=== PATIENT | female | born 1940 | race Caucasian/White ===

== ENCOUNTER → 2017-06-27 | Outpatient (CLI) | payer MEDICARE, OTHER ==
[~2017-06-27] MED LIST: ALBU90OI INH; AMILORIDE HCL5 MG PO; ASPI325 PO; ASPI81CH PO; BUME2 PO; CEPH500; CEPH500 PO; CHEMO; CIPR500 PO; ELIQUIS5 MG PO; ERGO400 PO; FLUSAL2505 IH; GABA100 PO; GLIP10 PO; Hydrocodone-Ap1 EA23 PO; IBUP400; MAGCHL64ER PO; MAGNESIUM; MECL25 PO; METF500 PO; METO25ER PO; NAC600 MG PO; NASACORT10.8 ML; Norco 5-325 Ta1 EACH PO; OMEP20ER PO; OXYACE5T PO; PARI1 PO; POTA10T PO; Phospha 250 Ne250 MG PO; SAXA2.5T PO; TIOT18 IH; VITAMIN D-32000 UNI1 PO; VITAMIN D35000 UNI1 PO; Valium2 MG PO; WARF4 PO; WARFARIN; [UNRECOGNIZED DRUG - OTHER]
[2017-06-27 13:34] LABS: Percent Saturation 30.3 % (15.0-50.0)
== END ==
LOC: LAB SHORT 12:30
PROVIDERS: Internal Medicine Hematology & Oncology
DX: D50.9 Iron deficiency anemia, unspecified (principal)
CPT/HCPCS: 82728; 83540; 83550

== ENCOUNTER 2017-07-28 00:26 | Day surgery (SDC) | payer MEDICARE, OTHER ==
[~2017-07-28 00:26] MED LIST changes: -Phospha 250 Ne250 MG PO; -WARF4 PO
[2017-07-28] MEDS ORDERED: Phospha 250 Ne250 MG PO (08:09)
[2017-07-28] MEDS ORDERED: WARF4 PO (08:10)
== END 2017-07-28 13:18 | disposition home or self-care (01) ==
LOC: ATC 00:26
DX: N17.9 Acute kidney failure, unspecified (principal); I12.9 Hypertensive chronic kidney disease with stage 1 through stage 4 chronic kidney disease, or unspecified chronic kidney disease; N18.9 Chronic kidney disease, unspecified; D63.1 Anemia in chronic kidney disease; R60.9 Edema, unspecified; D50.9 Iron deficiency anemia, unspecified; E87.1 Hypo-osmolality and hyponatremia; E87.6 Hypokalemia; E83.30 Disorder of phosphorus metabolism, unspecified; E83.42 Hypomagnesemia; E78.00 Pure hypercholesterolemia, unspecified
CPT/HCPCS: 96365; 96366; J7040

== ENCOUNTER 2017-09-04 08:12 | Day surgery (SDC) | payer MEDICARE, OTHER ==
[~2017-09-04 08:12] MED LIST changes: +Phospha 250 Ne250 MG PO; +WARF4 PO
== END 2017-09-04 17:51 | disposition home or self-care (01) ==
LOC: ATC 08:12
DX: E83.30 Disorder of phosphorus metabolism, unspecified (principal); I12.9 Hypertensive chronic kidney disease with stage 1 through stage 4 chronic kidney disease, or unspecified chronic kidney disease; N18.2 Chronic kidney disease, stage 2 (mild); D63.1 Anemia in chronic kidney disease; E87.70 Fluid overload, unspecified; D50.9 Iron deficiency anemia, unspecified; E87.1 Hypo-osmolality and hyponatremia; M81.0 Age-related osteoporosis without current pathological fracture
CPT/HCPCS: 96365; 96366; J7060

== ENCOUNTER → 2018-11-04 | Outpatient (CLI) | payer MEDICARE, OTHER ==
[2018-11-04 11:45] LABS: Protein, Urine Quantitative 6.8 mg/dL (0.0-11.9)
[2018-11-04 11:48] LABS: Microalbumin, Urine Quant. 7.98 mg/L (0.000-20.000)
== END | disposition home or self-care (01) ==
LOC: LAB 07:45 → LAB SHORT 07:45 → LAB FUT 10-28 14:10
PROVIDERS: Internal Medicine Nephrology
DX: N18.2 Chronic kidney disease, stage 2 (mild) (principal); D63.1 Anemia in chronic kidney disease; R80.9 Proteinuria, unspecified
CPT/HCPCS: 81050; 82043; 82570; 84156

== ENCOUNTER 2019-05-29 09:35 | Inpatient (IN) | payer MEDICARE, OTHER ==
[~2019-05-29] VITALS: Ht 154.9 cm; Wt 122.9 kg
[2019-05-29 10:11] LABS: BASOPHILS ABSOLUTE AUTO 0.04 K/mm3 (0.00-0.23); BASOPHILS PERCENT AUTO 0 % (0-2); EOSINOPHILS ABSOLUTE AUTO 0.03 K/mm3 (0.00-0.68); EOSINOPHILS PERCENT AUTO 0 % (0-6); Hematocrit 41.4 % (33.0-51.0); Hemoglobin 12.7 g/dL (11.5-16.0); IMMATURE GRAN ABSOLUTE AUTO 0.07 K/mm3 (0.00-0.10); IMMATURE GRAN PERCENT AUTO 0 % (0-1); LYMPHOCYTES ABSOLUTE AUTO 1.34 K/mm3 (0.84-5.20); LYMPHOCYTES PERCENT AUTO 8 % (21-46); MONOCYTES ABSOLUTE AUTO 0.98 K/mm3 (0.16-1.47); MONOCYTES PERCENT AUTO 6 % (4-13); Mean Corpuscular HGB 27.6 pg (26.0-34.0); Mean Corpuscular HGB Conc 30.7 g/dL (31.5-36.5); Mean Corpuscular Volume 90 fL (80-100); Mean Platelet Volume 9.3 fL (9.1-12.4); NEUTROPHILS ABSOLUTE AUTO 14.37 K/mm3 (1.96-9.15); NEUTROPHILS PERCENT AUTO 85 % (41-73); Platelet Count 290 K/mm3 (150-400); RDW Coefficient Variation 14.8 % (11.7-14.2); RDW Standard Deviation 48.7 fL (35.1-46.3); White Blood Cell Count 16.83 K/mm3 (4.00-11.30)
[2019-05-29 10:18] LABS: Alanine Aminotransfer (ALT/SGP 23 U/L (12-78); Albumin, Blood 3.4 g/dL (3.4-5.0); Albumin/Globulin Ratio 0.8 (0.8-1.8); Alk Phos 92 U/L (50-136); Anion Gap 7 mmol/L (6-16); Aspartate Aminotrans (AST/SGOT 20 U/L (12-37); Bilirubin, Total 0.4 mg/dL (0.1-1.0); Blood Urea Nitrogen 24 mg/dL (8-24); CO2, Blood 26 mmol/L (21-32); Calcium, Blood 9.3 mg/dL (8.5-10.1); Chloride, Blood 105 mmol/L (98-108); Creatinine, Blood 0.92 mg/dL (0.40-1.00); Globulin, Blood 4.3 g/dL (2.2-4.0); Glomerular Filtration Rate >60 (60-); Glucose, Blood 244 mg/dL (70-99); Potassium, Blood 5.1 mmol/L (3.5-5.5); Sodium, Blood 138 mmol/L (136-145); Total Protein, Blood 7.7 g/dL (6.4-8.2)
[2019-05-29 11:27] LABS: International Normalized Ratio 2.93; Prothrombin Time Results 28.2 Sec (9.7-11.5)
--- NOTE | 2019-05-29 19:07 | NUR ---
pt arrived to pcu 2 via gurney from ed. report was recieved, pt able to stand and pivot to bed, she was positioned in bed so she is comfortable, and sat her up so she can breath easier, her spouce is in attendence, she is a/ox3, pleasant and cooperative with care, follows commands well, denies pain except for a h/a, and feels that is from not eating all day, lungs are very tight and dim t/o, resp even and labored, at rate of 24, sats were 90% on room air, placed her on 2 liters and placed her on a continuous, sat monitor, she is 90% on r/a placed her on 2 liters 02 via n/c, she reports a productive cough of brown sputum, that is very thick and sticky, hrr, tele in place running 100% paced rhythm with underlying sinus, no edema noted, ppp+1, cap refill <3sec, vs stable, low grade temp, iv site is s.l. 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
--- NOTE | 2019-05-29 20:10 | NUR ---
CARE ASSUMPTION / CRITICAL LACTIC PT A&O X4. VSS. RR RAPID, EVEN & LABORED. SPO2 > 90% ON 2L NC. LUNG SOUNDS DIM T/O. MONITOR SHOWS 100% V-PACED, HR 90's. CRITICAL LACTIC OF 4.3 CALLED TO MD AMANDA W/ ORDER TO RECHECK LACTIC IN AM. NS GTT INFUSING PER PRE-EXISTING ORDERS. WILL CONTINUE TO MONITOR AND PROVIDE CARE.
[2019-05-30 03:19] LABS: BASOPHILS ABSOLUTE AUTO 0.02 K/mm3 (0.00-0.23); BASOPHILS PERCENT AUTO 0 % (0-2); EOSINOPHILS ABSOLUTE AUTO 0.16 K/mm3 (0.00-0.68); EOSINOPHILS PERCENT AUTO 2 % (0-6); Hematocrit 33.5 % (33.0-51.0); Hemoglobin 10.4 g/dL (11.5-16.0); IMMATURE GRAN ABSOLUTE AUTO 0.03 K/mm3 (0.00-0.10); IMMATURE GRAN PERCENT AUTO 0 % (0-1); LYMPHOCYTES ABSOLUTE AUTO 2.73 K/mm3 (0.84-5.20); LYMPHOCYTES PERCENT AUTO 25 % (21-46); MONOCYTES ABSOLUTE AUTO 0.73 K/mm3 (0.16-1.47); MONOCYTES PERCENT AUTO 7 % (4-13); Mean Corpuscular HGB 28.3 pg (26.0-34.0); Mean Corpuscular Volume 91 fL (80-100); NEUTROPHILS ABSOLUTE AUTO 7.12 K/mm3 (1.96-9.15); NEUTROPHILS PERCENT AUTO 66 % (41-73); Platelet Count 220 K/mm3 (150-400); RDW Coefficient Variation 14.9 % (11.7-14.2); RDW Standard Deviation 50.1 fL (35.1-46.3); Red Blood Cell Count 3.68 M/mm3 (3.80-5.20); White Blood Cell Count 10.79 K/mm3 (4.00-11.30)
[2019-05-30 03:33] LABS: International Normalized Ratio 2.93; Prothrombin Time Results 28.2 Sec (9.7-11.5)
[2019-05-30 03:38] LABS: Alanine Aminotransfer (ALT/SGP 20 U/L (12-78); Albumin, Blood 2.9 g/dL (3.4-5.0); Albumin/Globulin Ratio 0.8 (0.8-1.8); Alk Phos 67 U/L (50-136); Anion Gap 7 mmol/L (6-16); Aspartate Aminotrans (AST/SGOT 15 U/L (12-37); Bilirubin, Total 0.4 mg/dL (0.1-1.0); Blood Urea Nitrogen 17 mg/dL (8-24); Bun/Creatinine Ratio 21.2 (12.0-20.0); CO2, Blood 26 mmol/L (21-32); Calcium, Blood 8.2 mg/dL (8.5-10.1); Chloride, Blood 107 mmol/L (98-108); Globulin, Blood 3.5 g/dL (2.2-4.0); Glomerular Filtration Rate >60 (60-); Glucose, Blood 122 mg/dL (70-99); Potassium, Blood 3.8 mmol/L (3.5-5.5); Sodium, Blood 140 mmol/L (136-145); Total Protein, Blood 6.4 g/dL (6.4-8.2)
--- NOTE | 2019-05-30 07:19 | NUR ---
SHIFT SUMMARY PT A&O X4. VSS. RESPIRATIONS IMPROVED, UNLABORED AT REST. PT SOB W/ STAND AND PIVOT TO BSC. SPO2 > 90% ON 2L NC AT REST, REQUIRING 4-6L FOR ACTIVITY. LUNG SOUNDS DIM T/O. PT W/ OCCASSIONAL PRODUCTIVE COUGH W/ SCANT AMOUNT OF THICK BROWN SPUTUM. SPUTUM SAMPLE SENT WHEN PT ABLE TO PRODUCE SMALL SIZED SAMPLE THIS AM. MONITOR SHOWS V-PACING, HR 90's. LACTIC ACID NORMAL THIS AM AFTER TX PER ORDERS, SEE PREVIOUS NOTE. BLE W/ +2 EDEMA AT CARE ASSUMPTION, REDUCED THIS AM W/ ELEVATION. REPORT GIVEN TO DAY SHIFT RN.
--- NOTE | 2019-05-30 07:30 | NUR ---
RT IN ROOM AT THIS TIME.
--- NOTE | 2019-05-30 10:06 | NUR ---
NOTIFIED SLURRY TANK TENDER OF NEEDING NEW IV PLACED. SLURRY TANK TENDER VERBALIZED SHE WOULD TAKE A LOOK.
[2019-05-30 12:47] LABS: Adenovirus Not Detected (NOT DETECT); Bordetella pertussis Not Detected (NOT DETECT); Chlamydophila pneumoniae Not Detected (NOT DETECT); Coronavirus 229E Not Detected (NOT DETECT); Coronavirus HKU1 Not Detected (NOT DETECT); Coronavirus NL63 Not Detected (NOT DETECT); Coronavirus OC43 Not Detected (NOT DETECT); Human Metapneumovirus Not Detected (NOT DETECT); Human Rhinovirus/Enterovirus Not Detected (NOT DETECT); Influenza A Not Detected (NOT DETECT); Influenza A/2009-H1 Not Detected (NOT DETECT); Influenza A/H1 Not Detected (NOT DETECT); Influenza A/H3 Not Detected (NOT DETECT); Influenza B Not Detected (NOT DETECT); Mycoplasma pneumoniae Not Detected (NOT DETECT); Parainfluenza Virus 1 Not Detected (NOT DETECT); Parainfluenza Virus 2 Not Detected (NOT DETECT); Parainfluenza Virus 3 Not Detected (NOT DETECT); Parainfluenza Virus 4 Not Detected (NOT DETECT); Respiratory Syncytial Virus Not Detected (NOT DETECT)
--- NOTE | 2019-05-30 16:03 | NUR ---
SHIFT SUMMARY PT REPORT SHE IS FEELING BETTER THIS SHIFT. PT REMAINS ON 2.5L VIA NC WITH SATS BETWEEN 90-95%. PT DOES GET SOB WITH EXERTION AND DESATS TO 87%, BUT RECOVERS QUICKLY WITH DEEP BREATHING. PT CONT TO HAVE A PRODUCTIVE COUGH. SPUTUM CULTURE SENT. LUNGS ARE CLEAR BUT DIMINISHED IN THE BASES. RT ADMINISTERING NEBS PER ORDERS. CONT IV ABX. 1 SBA TO RESTROOM AND PT HAS BEEN UP IN CHAIR MOST OF SHIFT. ADE ADA DIET. PT USES CALL LIGHT APPROPRIATEY.
--- NOTE | 2019-05-30 19:48 | NUR ---
CARE ASSUMPTION PT A&O X4. VSS. PT SITTING UP IN CHAIR, REPORTS FEELING BETTER TODAY THAN SHE DID YESTERDAY. LUNG SOUNDS CLEAR, DIM IN BASES. SPO2 > 92% ON 2.5L NC. RR 20's, INCREASING W/ POSITION ADJUSTMENTS IN CHAIR. MONITOR SHOWS PACING, HR 90's. WILL CONTINUE TO MONITOR AND PROVIDE CARE.
[2019-05-31 04:48] LABS: International Normalized Ratio 2.97; Prothrombin Time Results 28.5 Sec (9.7-11.5)
--- NOTE | 2019-05-31 06:15 | NUR ---
SHIFT SUMMARY PT CONTINUES TO BE A&O X4. VSS. MONITOR SHOWS PACING, HR 90's-110. SPO2 > 90% ON 2.5L NC. PT SOB W/ ACTIVITY W/ 1 EPISODE OF DESAT TO 86% W/ AMBULATION TO BATHROOM REQUIRING TEMPORARY INCREASE TO 4L NC FOR RECOVERY. PT BREATHING EVEN AND UNLABORED WHILE AT REST OR SLEEPING. PT W/ 3 EPISODES THIS SHIFT OF PT WAKING UP REPORTING "I WOKE UP PANICKING THAT I CAN'T BREATHE" THOUGH SPO2 REMAINS > 90%. PT ENCOURAGED TO TAKE DEEP BREATHS. PT DIFFICULTY REPOSITIONING SELF IN BED, REQUIRING FREQUENT ASSISTANCE BY STAFF. PT DIFFICULTY GETTING COMFORTABLE W/ PT REPORT OF CLAUSTROPHOBIA AND IT BEING "IMPOSSIBLE TO MOVE IN BED." PT W/ MINIMAL SLEEP THIS SHIFT DESPITE MULT ATTEMPTS BY PT AND STAFF TO MAKE COMFORTABLE. PT IN BED W/ CALL LIGHT IN REACH. WILL CONTINUE TO MONITOR AND PROVIDE CARE UNTIL REPORT OFF TO DAY SHIFT RN.
--- NOTE | 2019-05-31 07:00 | NUR ---
ASSUMED CARE NOTE: ASSUMED CARE OF PT AT 0700, RECEIVED REPORT FROM BON JO. PT IS A&OX4, ON 2L OF NC WITH SPO2 ABOVE 90%. PT DENIES ANY CP/SOB AT THIS TIME. PT HAS BLE EDEMA. PT STATES SHE TAKES BUMEX DAILY AT HOME, WILL ASK FOR ORDER. WILL MONITOR PT T/O SHIFT. BED AT LOWEST LEVEL, CALL LIGHT WITHIN REACH.
--- NOTE | 2019-05-31 15:07 | NUR ---
REPORT GIVEN TO SANDRO TEIXEIRA. PT TO MEDICAL FLOOR RM 362 AT THIS TIME VIA WC WITH STAFF ASSIST ON 2L/NC. PT BELONGINGS AND MEDS SENT WITH PATIENT.
--- NOTE | 2019-05-31 15:17 | NUR ---
TRANSFER: PT ARRIVED TO ROOM 362 FROM PCU. PT UP TO CHAIR. ICE WATER GIVEN. ABX INFUSING IN IV. DENIES OTHER NEEDS. CALL LIGHT IN HAND. WILL CONT TO MONITOR AND TREAT.
--- NOTE | 2019-05-31 18:32 | NUR ---
PT HAS BEEN STABLE SINCE TRANSFER TO MEDICAL FLOOR. PT WEAK AND TIRED. UP TO CHAIR ALL AFTERNOON. POOR APPETITE. BLOOD SUGARS NOT REQUIRING COVERAGE. DRINKING FLUIDS WELL. VOIDING WELL. VERY SOB WITH ANY ACTIVITY. CONT 2L O2. PT DENIES PAIN. NO COUGH NOTED. PRUNE JUICE THIS AM TO ASSIST BM. IV SL. WBC COUNT TRENDING DOWN. BLE EDEMA. PT MIN ASSIST OOB WITH WALKER. USES CALL LIGHT APPRORIATELY NEEDED.
--- NOTE | 2019-06-01 04:31 | NUR ---
05/31/19 @2300 PT. VERY SOB WITH SWELLING IN THE HANDS AND FEET. RECEVIED NEB TX FROM RT, WHICH DID NOT HELP MUCH WITH HER SOB. SATS WERE AT 97% OTHER VSS. CALL PLACED TO HOSPITALIST. SPOKE WITH DR. RODRIGUEZ, PUT IN ORDER FOR 1X DOSE OF IV BUMEX. 05/31/19- 0100 PT. HAS VOIDED SEVERAL TIMES T/O THE NIGHT, STATES IS FEELING BETTER. DENIES ANY PAIN. WILL CONT TO MONITOR.
--- NOTE | 2019-06-01 04:40 | NUR ---
SHIFT SUMMARY- PT. RESTLESS T/O THE NIGHT. C/O SOB, RECEIVED SEVERAL BREATHING TX'S T/O THE SHIFT WELL 1X IV BUMEX, VOIDING WELL. PT. STATED FEELING BETTER BUT STILL UNABLE TO SLEEP OR GET COMFORTABLE. VSS, REPOSITIONED FOR COMFORT MULTIPLE TIMES DURING THE NIGHT. PT. WEAK AND TIRED, ON 2L OF 02. HAS BEEN OOB TO CHAIR MOST OF THE NIGHT. DENIES ANY PAIN. SPOUSE AT BEDSIDE. CALL LIGHT WITHIN REACH AND SIDE RAILS UP X2. WILL CONT TO MONITOR.
[2019-06-01 05:16] LABS: International Normalized Ratio 2.88; Prothrombin Time Results 27.7 Sec (9.7-11.5)
[2019-06-01 05:26] LABS: Anion Gap 9 mmol/L (6-16); Blood Urea Nitrogen 14 mg/dL (8-24); Bun/Creatinine Ratio 15.1 (12.0-20.0); CO2, Blood 25 mmol/L (21-32); Calcium, Blood 8.6 mg/dL (8.5-10.1); Chloride, Blood 103 mmol/L (98-108); Creatinine, Blood 0.93 mg/dL (0.40-1.00); Glomerular Filtration Rate >60 (60-); Glucose, Blood 164 mg/dL (70-99); Potassium, Blood 3.2 mmol/L (3.5-5.5); Sodium, Blood 137 mmol/L (136-145)
--- NOTE | 2019-06-01 18:56 | NUR ---
NO ACUTE CHANGES NOTED THIS SHIFT, WILL CONTINUE TO MONITOR AND REPORT TO ONCOMING RN
--- NOTE | 2019-06-02 04:25 | NUR ---
SHIFT SUMMARY- NO ACUTE CHANGES OVERNIGHT. PT.RESTED COMFORTABLY T/O NIGHT, NO APPARENT DISTRESS NOTED. PT. REMAINS ON 2L OF 02. DENIED ANY NEEDS T/O THE NIGHT. CALL LIGHT WITHIN REACH, SIDE RAILS UP X2, AND BED IN LOW POSITION. WILL CONT TO MONITOR.
[2019-06-02 04:47] LABS: BASOPHILS ABSOLUTE AUTO 0.03 K/mm3 (0.00-0.23); BASOPHILS PERCENT AUTO 0 % (0-2); EOSINOPHILS ABSOLUTE AUTO 0.36 K/mm3 (0.00-0.68); EOSINOPHILS PERCENT AUTO 5 % (0-6); Hematocrit 35.3 % (33.0-51.0); Hemoglobin 11.1 g/dL (11.5-16.0); IMMATURE GRAN ABSOLUTE AUTO 0.03 K/mm3 (0.00-0.10); IMMATURE GRAN PERCENT AUTO 0 % (0-1); LYMPHOCYTES ABSOLUTE AUTO 1.57 K/mm3 (0.84-5.20); LYMPHOCYTES PERCENT AUTO 20 % (21-46); MONOCYTES PERCENT AUTO 9 % (4-13); Mean Corpuscular HGB 27.4 pg (26.0-34.0); Mean Corpuscular HGB Conc 31.4 g/dL (31.5-36.5); Mean Platelet Volume 9.3 fL (9.1-12.4); NEUTROPHILS ABSOLUTE AUTO 5.18 K/mm3 (1.96-9.15); NEUTROPHILS PERCENT AUTO 66 % (41-73); Platelet Count 279 K/mm3 (150-400); RDW Coefficient Variation 14.6 % (11.7-14.2); RDW Standard Deviation 46.5 fL (35.1-46.3); Red Blood Cell Count 4.05 M/mm3 (3.80-5.20); White Blood Cell Count 7.87 K/mm3 (4.00-11.30)
[2019-06-02 04:50] LABS: Mean Corpuscular Volume 87 fL (80-100)
[2019-06-02 05:01] LABS: International Normalized Ratio 3.72
[2019-06-02 05:05] LABS: Alanine Aminotransfer (ALT/SGP 25 U/L (12-78); Albumin, Blood 2.9 g/dL (3.4-5.0); Albumin/Globulin Ratio 0.7 (0.8-1.8); Alk Phos 73 U/L (50-136); Anion Gap 8 mmol/L (6-16); Aspartate Aminotrans (AST/SGOT 15 U/L (12-37); Bilirubin, Total 0.4 mg/dL (0.1-1.0); Blood Urea Nitrogen 14 mg/dL (8-24); Bun/Creatinine Ratio 19.2 (12.0-20.0); CO2, Blood 26 mmol/L (21-32); Calcium, Blood 8.4 mg/dL (8.5-10.1); Chloride, Blood 105 mmol/L (98-108); Creatinine, Blood 0.73 mg/dL (0.40-1.00); Globulin, Blood 4.3 g/dL (2.2-4.0); Glomerular Filtration Rate >60 (60-); Glucose, Blood 136 mg/dL (70-99); Magnesium, Blood 1.5 mg/dL (1.6-2.4); Potassium, Blood 3.6 mmol/L (3.5-5.5); Sodium, Blood 139 mmol/L (136-145); Total Protein, Blood 7.2 g/dL (6.4-8.2)
--- NOTE | 2019-06-02 17:49 | NUR ---
PT AOX4 AND COOPERATIVE OF CARE. PT IS SOB, BUT STATES SHE FEELS SHE IS DOING BETTER TODAY. PT IS INDEPENDENT IN ROOM AND CALLS APPROPRIATELY. NO DISTRESS AT THIS TIME. WILL CONTINUE TO MONITOR.
--- NOTE | 2019-06-02 19:40 | NUR ---
PATIENT SITTING UP WATCHING TV, DENIES ANY NEEDS AT THIS TIME. EDEMA IN BLE +2 PITTING, ENCOURAGED TO ELEVATE BUT WANTS TO STAY SITTING UP IN CHAIR. ASSESSMENT COMPLETED. CALL LIGHT IN REACH. WILL CONTINUE TO MONITOR.
--- NOTE | 2019-06-03 03:41 | NUR ---
PATIENT HAVING TROUBLE SLEEPING STATES BED IS UNCOMFORTABLE, SHE HAS TROUBLE BREATHING WHEN SHE LAYS FLAT. ALSO SHE HAS SEVERE HEARTBURN THAT GETS WORSE WHEN LAYING DOWN. CALLED HOSPITALIST AND GOT ORDER FOR MAYLOX PRN.
[2019-06-03 04:51] LABS: BASOPHILS ABSOLUTE AUTO 0.03 K/mm3 (0.00-0.23); BASOPHILS PERCENT AUTO 0 % (0-2); EOSINOPHILS ABSOLUTE AUTO 0.32 K/mm3 (0.00-0.68); EOSINOPHILS PERCENT AUTO 4 % (0-6); Hematocrit 35.1 % (33.0-51.0); IMMATURE GRAN ABSOLUTE AUTO 0.03 K/mm3 (0.00-0.10); IMMATURE GRAN PERCENT AUTO 0 % (0-1); LYMPHOCYTES ABSOLUTE AUTO 1.16 K/mm3 (0.84-5.20); LYMPHOCYTES PERCENT AUTO 16 % (21-46); MONOCYTES ABSOLUTE AUTO 0.56 K/mm3 (0.16-1.47); MONOCYTES PERCENT AUTO 8 % (4-13); Mean Corpuscular HGB 27.4 pg (26.0-34.0); Mean Corpuscular HGB Conc 31.3 g/dL (31.5-36.5); Mean Corpuscular Volume 88 fL (80-100); Mean Platelet Volume 9.4 fL (9.1-12.4); NEUTROPHILS ABSOLUTE AUTO 5.13 K/mm3 (1.96-9.15); NEUTROPHILS PERCENT AUTO 71 % (41-73); Platelet Count 303 K/mm3 (150-400); RDW Coefficient Variation 14.6 % (11.7-14.2); RDW Standard Deviation 46.6 fL (35.1-46.3); Red Blood Cell Count 4.01 M/mm3 (3.80-5.20); White Blood Cell Count 7.23 K/mm3 (4.00-11.30)
[2019-06-03 05:05] LABS: International Normalized Ratio 3.66; Prothrombin Time Results 34.5 Sec (9.7-11.5)
[2019-06-03 05:14] LABS: Alanine Aminotransfer (ALT/SGP 25 U/L (12-78); Albumin/Globulin Ratio 0.7 (0.8-1.8); Alk Phos 70 U/L (50-136); Anion Gap 7 mmol/L (6-16); Aspartate Aminotrans (AST/SGOT 20 U/L (12-37); Bilirubin, Total 0.4 mg/dL (0.1-1.0); Blood Urea Nitrogen 14 mg/dL (8-24); Bun/Creatinine Ratio 18.8 (12.0-20.0); CO2, Blood 29 mmol/L (21-32); Calcium, Blood 8.5 mg/dL (8.5-10.1); Chloride, Blood 102 mmol/L (98-108); Creatinine, Blood 0.75 mg/dL (0.40-1.00); Globulin, Blood 4.1 g/dL (2.2-4.0); Glomerular Filtration Rate >60 (60-); Glucose, Blood 166 mg/dL (70-99); Potassium, Blood 3.3 mmol/L (3.5-5.5); Sodium, Blood 138 mmol/L (136-145); Total Protein, Blood 7.1 g/dL (6.4-8.2)
[2019-06-03 05:17] LABS: Percent Saturation 13.9 % (15.0-50.0)
--- NOTE | 2019-06-03 05:17 | NUR ---
SHIFT SUMMARY: 78 Y/O FEMALE ADMITTED WITH COMMUNITY AQUIRED PNEUMONIA. VS HAVE REMAINED WNL. SATS REMAINED IN THE 90'S ON 1 LITERS OF O2. SHE DID HAVE DIFFICULT TIME SLEEPING TONIGHT SHE WAS UNABLE TO FIND A COMFORTABLE POSITION. SHE WAS UP AND DOWN ALSO WITH HEART BURN. WAS CALLED AND MAALOX WAS GIVEN. THIS HELPED TO RELEIVE SOME OF THE DISCOMFORT. DISCUSSED HOME HEALTH FOR DISCHARGED, STATES GARCIA CAME AND TALKED WITH HER. HOPES SHE CAN GET THE SERVICE, SHE LIVES WITH DEAF WHO SLEEPS ON OTHER SIDE OF THE HOUSE. STATES SHE HAS NO OTHER HELP AND IS AFRAID TO GO HOME. INFORMED HER WILL PASS OFF TO DAY SHIFT SO THEY CAN DISCUSS WITH WOODEN FRAME BUILDER. NO OTHER ACUTE CHANGES OCCURRED THIS SHIFT. WILL REPORT OFF.
[2019-06-03] MEDS ORDERED: AZIT500 PO (12:22)
[2019-06-03] MEDS ORDERED: GUAI600T33 PO (12:23)
[2019-06-03] MEDS ORDERED: BENZ100A PO (12:23)
--- NOTE | 2019-06-03 13:32 | NUR ---
DISCHARGE PT SITTING UP ON BEDSIDE FOR BF THIS AM, A/O X4, PLEASANT, STATE FEELING IMPROVED. STATE CONTINUING COUGH PROD SM AMTS SPUTUM. LUNGS ARE SOMEWHAT COARSE. SHE STATE NO SOB @ REST. DR PEREIRA IN TO SEE HER @ LUNCHTIME. STATE OK FOR D/C HOME TODAY. PT STATE FEELS READY, IS HERE FOR TRANSPORTATION HOME. SCRIPTS FAXED TO [facility]/REQUEST. IV D/C INTACT. D/C INSTRUCT PROVIDED. W/C ESCORT FROM HOSP PROVIDED. PT IS PLEASANT/ APPRECIATIVE.
== END 2019-06-03 14:00 | disposition home health service (06) | DRG 871 ==
LOC: ER 09:35 → PCU 15:49 → MEDS 05-31 14:57 → ENPENDDIS 06-03 11:40 → MEDS 06-03 14:00
PROVIDERS: Emergency Medicine; Internal Medicine; Nurse Practitioner Acute Care; ADMIT Internal Medicine
DX: A41.9 Sepsis, unspecified organism (principal); J18.9 Pneumonia, unspecified organism; R65.21 Severe sepsis with septic shock; J96.01 Acute respiratory failure with hypoxia; I50.30 Unspecified diastolic (congestive) heart failure; Z68.43 Body mass index [BMI] 50.0-59.9, adult; D64.9 Anemia, unspecified; E11.9 Type 2 diabetes mellitus without complications; I11.0 Hypertensive heart disease with heart failure; E87.6 Hypokalemia; E66.01 Morbid (severe) obesity due to excess calories; K59.00 Constipation, unspecified; K21.9 Gastro-esophageal reflux disease without esophagitis; Z85.118 Personal history of other malignant neoplasm of bronchus and lung; Z95.0 Presence of cardiac pacemaker; Z88.8 Allergy status to other drugs, medicaments and biological substances; Z87.891 Personal history of nicotine dependence; Z92.3 Personal history of irradiation
CPT/HCPCS: 0099U; 36415; 71046; 74177; 76705; 80048; 80053; 82607; 82728; 82746; 82947; 83540; 83550; 83605; 83690; 83735; 83880; 84145; 84443; 84484; 85025; 85610; 87040; 87070; 87205; 93005; 93010; 94640; 94760; 94762; 96361; 96365-59; 96366; 96367; 96375; 97110; 97162; 97165; 97530; 97535; 99285-25; J0456; J0696; J2405; J3370; J3475; J7030; J7050; J7120; Q9967

== ENCOUNTER 2019-06-03 20:49 | Emergency (ER) | payer MEDICARE, OTHER ==
[~2019-06-03] VITALS: Ht 152.4 cm; Wt 113.4 kg
[~2019-06-03 20:49] MED LIST changes: +AZIT500 PO; +BENZ100A PO; +GUAI600T33 PO
== END 2019-06-03 23:00 | disposition left against medical advice (07) ==
LOC: ER 20:49
DX: Z53.21 Procedure and treatment not carried out due to patient leaving prior to being seen by health care provider (principal)
CPT/HCPCS: 74018; 99283-25

== ENCOUNTER → 2019-08-11 | Outpatient (CLI) | payer MEDICARE, OTHER | END | disposition home or self-care (01) | LOC: OLS 11:07 → LAB SHORT 11:07 | DX: R05 Cough (principal) | CPT/HCPCS: 87070; 87205 ==

== ENCOUNTER → 2020-11-24 | Outpatient (CLI) | payer MEDICARE, OTHER | END | disposition home or self-care (01) | LOC: LAB SHORT 10:30 → LAB 10:30 | DX: Z79.01 Long term (current) use of anticoagulants (principal); Z51.81 Encounter for therapeutic drug level monitoring | CPT/HCPCS: 36416; 85610 ==

== ENCOUNTER → 2020-12-22 | Outpatient (CLI) | payer MEDICARE, OTHER ==
[2020-12-22 18:35] LABS: BASOPHILS ABSOLUTE AUTO 0.01 K/mm3 (0.00-0.23); BASOPHILS PERCENT AUTO 0 % (0-2); EOSINOPHILS ABSOLUTE AUTO 0.04 K/mm3 (0.00-0.68); EOSINOPHILS PERCENT AUTO 1 % (0-6); Hematocrit 39.8 % (33.0-51.0); Hemoglobin 12.7 g/dL (11.5-16.0); IMMATURE GRAN ABSOLUTE AUTO 0.03 K/mm3 (0.00-0.10); IMMATURE GRAN PERCENT AUTO 0 % (0-1); LYMPHOCYTES ABSOLUTE AUTO 0.78 K/mm3 (0.84-5.20); LYMPHOCYTES PERCENT AUTO 10 % (21-46); MONOCYTES PERCENT AUTO 5 % (4-13); Mean Corpuscular HGB 27.6 pg (26.0-34.0); Mean Corpuscular HGB Conc 31.9 g/dL (31.5-36.5); Mean Corpuscular Volume 87 fL (80-100); NEUTROPHILS ABSOLUTE AUTO 6.36 K/mm3 (1.96-9.15); NEUTROPHILS PERCENT AUTO 84 % (41-73); Platelet Count 283 K/mm3 (150-400); RDW Coefficient Variation 15.4 % (11.7-14.2); RDW Standard Deviation 48.5 fL (35.1-46.3); White Blood Cell Count 7.62 K/mm3 (4.00-11.30)
[2020-12-22 18:58] LABS: Bun/Creatinine Ratio 19.8 (12.0-20.0); Calcium, Blood 9.1 mg/dL (8.5-10.1); Creatinine, Blood 1.16 mg/dL (0.40-1.00); Potassium, Blood 4.7 mmol/L (3.5-5.5); Thyroid Stimulating Hormone 1.127 uIU/mL (0.360-4.800)
== END | disposition home or self-care (01) ==
LOC: LAB SHORT 18:29
PROVIDERS: Chiropractor
DX: K52.9 Noninfective gastroenteritis and colitis, unspecified (principal); R53.83 Other fatigue; R82.79 Other abnormal findings on microbiological examination of urine
CPT/HCPCS: 80048; 84443; 85025; 87086

== ENCOUNTER 2021-12-10 07:34 | Inpatient (IN) | payer MEDICARE, OTHER ==
[~2021-12-10] VITALS: Ht 152.4 cm; Wt 105.6 kg
[2021-12-10 07:58] LABS: BASOPHILS ABSOLUTE AUTO 0.02 K/mm3 (0.00-0.23); BASOPHILS PERCENT AUTO 0 % (0-2); EOSINOPHILS ABSOLUTE AUTO 0.19 K/mm3 (0.00-0.68); EOSINOPHILS PERCENT AUTO 2 % (0-6); Hemoglobin 11.5 g/dL (11.5-16.0); IMMATURE GRAN ABSOLUTE AUTO 0.02 K/mm3 (0.00-0.10); IMMATURE GRAN PERCENT AUTO 0 % (0-1); LYMPHOCYTES ABSOLUTE AUTO 3.14 K/mm3 (0.84-5.20); LYMPHOCYTES PERCENT AUTO 36 % (21-46); MONOCYTES ABSOLUTE AUTO 0.57 K/mm3 (0.16-1.47); MONOCYTES PERCENT AUTO 7 % (4-13); Mean Corpuscular HGB 25.4 pg (26.0-34.0); Mean Corpuscular HGB Conc 30.3 g/dL (31.5-36.5); Mean Corpuscular Volume 84 fL (80-100); NEUTROPHILS ABSOLUTE AUTO 4.75 K/mm3 (1.96-9.15); NEUTROPHILS PERCENT AUTO 55 % (41-73); Platelet Count 330 K/mm3 (150-400); RDW Coefficient Variation 16.1 % (11.7-14.2); RDW Standard Deviation 49.1 fL (35.1-46.3); Red Blood Cell Count 4.53 M/mm3 (3.80-5.20); White Blood Cell Count 8.69 K/mm3 (4.00-11.30)
[2021-12-10 08:18] LABS: Base Excess Venous 0.6 mmol/L; Bicarbonate Venous 23.6 mmol/L (24.0-30.0); PCO2 Venous 57.6 mmHg (38-42); pH Blood Venous 7.28 (7.34-7.37)
[2021-12-10 08:19] LABS: Albumin, Blood 3.1 g/dL (3.4-5.0); Albumin/Globulin Ratio 0.7 (0.8-1.8); Bilirubin, Total 0.3 mg/dL (0.1-1.0); Bun/Creatinine Ratio 16.8 (12.0-20.0); Calcium, Blood 9.5 mg/dL (8.5-10.1); Creatinine, Blood 0.83 mg/dL (0.40-1.00); Globulin, Blood 4.2 g/dL (2.2-4.0); Magnesium, Blood 1.6 mg/dL (1.6-2.4); Potassium, Blood 4.5 mmol/L (3.5-5.5); Total Protein, Blood 7.3 g/dL (6.4-8.2)
[2021-12-10 08:44] LABS: International Normalized Ratio 3.46; Prothrombin Time Results 33.5 Sec (9.7-11.5)
[2021-12-10 08:53] LABS: Influenza A, PCR NEGATIVE (NEGATIVE); Influenza B, PCR NEGATIVE (NEGATIVE); Resp Syncytial Virus, PCR NEGATIVE (NEGATIVE); SARS-Cov-2 (COVID-19) PCR, MMC NEGATIVE (NEGATIVE)
[2021-12-10 16:22] LABS: Base Excess Venous -3.2 mmol/L; Bicarbonate Venous 21.3 mmol/L (24.0-30.0); PCO2 Venous 46.9 mmHg (38-42)
[2021-12-10] MEDS ORDERED: B-12500 MC2 PO (17:03)
[2021-12-10] MEDS ORDERED: FAMO20 PO (17:06)
--- NOTE | 2021-12-10 18:35 | NUR ---
END OF SHIFT: PATIENT WAS A ER HOLD TRANFER, PATIENT ON BITE SIZE TRAY, HAS A HISTORY OF DM, CONTROLLED WITH ORALS, NO CBG ORDERS AT THIS TIME WILL INFORM NIGHT RN. PATIENT WAS A 1 ASSIST WITH FWW, NO CHEST PAIN, OR SOB. PATIENT HAS BEEN ST. WEARING 2-5L VA NC FOR SPO2 >92% HIGHER LEVELS WITH EXERTION, GENERALLY WEAK, PLEASE SEE LUNG SOUNDS IN ASSESSMENT. PATIENT HAS BEEN DIURESED, POWERGLIDE BY SENIOR PAYROLL SPECIALIST PLACED. OTHER IV REMOVED. PATIENT HAS BEEN PLEASANT ALERT AND ORIENTED, USES CALL LIGHT APPORPRIATELY.
--- NOTE | 2021-12-10 18:54 | NUR ---
RECIEVING TRANSFER SUMMARY: PATIENT HAS BEEN RESTING IN BED, ALERT AND ORIENTED AT THIS TIME, GONZALEZ IN PLACE, SR WITH POSSIBLE FIRST DEGREE. PATIENT HAS BRUISES ON STOMACH, NO DOCUMENTATION DONE AT THIS TIME, PATIENT ENDORSES DUE TO FALL AT HOME RECENTLY. PATIENT HAS SWELLING TO THE LEFT SIDE OF FACE. IV FLUSHES, DENIES CHEST PAIN OR SOB, DOES ENDORSE WEAKNESS. HAS BEEN BED REST, POSITIVE FOR UTI, WILL CONTINUE TO MONITOR UNTIL SHIFT CHANGE.
--- NOTE | 2021-12-10 23:41 | NUR ---
CARE ASSUMPTION: RECEIVED PATIENT REPORT FROM ZULEYMA PICKETT RN. PATIENT SITTING ON SIDE OF BED, POSITIONAL BREATHING. DEPENDENT EDEMA PRESENT, CORRECTS WITH ELEVATION/MOVEMENT. PATIENT SBA WITH FWW TO BSC, WILL BUILD TOLERANCE TO AMBULATE TO TOILET. PLEASANT AND COOPERATIVE WITH CARE. BED LOW WITH CALL LIGHT IN REACH.
--- NOTE | 2021-12-11 01:37 | NUR ---
UPDATE: PATIENT AWOKE AND CALLED RN. PATIENT STATED SHE WAS UNABLE TO BREATHE AND NEEDED TO SIT UP. THIS RN ASSISTED PATIENT TO SITTING POSITION. PATIENT NOTED TO BE SHAKING AND WHEEZY. CALLED JESS HUDDLESTON WHO ADMINISTERED NEBULIZER TREATMENT. PATIENT STATED SHE WAS SUDDENLY "VERY COLD" SO BLANKET WAS APPLIED TO SHOULDERS AND BACK. PATIENT'S SHAKING INCREASED AND SKIN APPEARED TO PALE. VS WNL AND CBG 196. PATIENT COMPLETED NEBULIZER TREATMENT WITH IMPROVED SOB AND LESS SHAKINESS. PATIENT STATES SHE FEELS BETTER. BED LOW WITH CALL LIGHT IN PLACE.
[2021-12-11 04:20] LABS: BASOPHILS ABSOLUTE AUTO 0.01 K/mm3 (0.00-0.23); BASOPHILS PERCENT AUTO 0 % (0-2); EOSINOPHILS PERCENT AUTO 0 % (0-6); Hematocrit 35.9 % (33.0-51.0); Hemoglobin 10.9 g/dL (11.5-16.0); IMMATURE GRAN ABSOLUTE AUTO 0.06 K/mm3 (0.00-0.10); IMMATURE GRAN PERCENT AUTO 1 % (0-1); LYMPHOCYTES ABSOLUTE AUTO 0.47 K/mm3 (0.84-5.20); LYMPHOCYTES PERCENT AUTO 4 % (21-46); MONOCYTES PERCENT AUTO 5 % (4-13); Mean Corpuscular HGB 25.5 pg (26.0-34.0); Mean Corpuscular HGB Conc 30.4 g/dL (31.5-36.5); Mean Corpuscular Volume 84 fL (80-100); Mean Platelet Volume 8.9 fL (9.1-12.4); NEUTROPHILS ABSOLUTE AUTO 9.79 K/mm3 (1.96-9.15); NEUTROPHILS PERCENT AUTO 90 % (41-73); Platelet Count 330 K/mm3 (150-400); RDW Coefficient Variation 16.4 % (11.7-14.2); RDW Standard Deviation 49.5 fL (35.1-46.3); Red Blood Cell Count 4.28 M/mm3 (3.80-5.20); White Blood Cell Count 10.83 K/mm3 (4.00-11.30)
[2021-12-11 04:40] LABS: International Normalized Ratio 3.21; Prothrombin Time Results 31.2 Sec (9.7-11.5)
[2021-12-11 04:47] LABS: Bun/Creatinine Ratio 20.7 (12.0-20.0); Calcium, Blood 9.5 mg/dL (8.5-10.1); Creatinine, Blood 0.97 mg/dL (0.40-1.00); Magnesium, Blood 1.6 mg/dL (1.6-2.4); Potassium, Blood 4.8 mmol/L (3.5-5.5)
--- NOTE | 2021-12-11 05:29 | NUR ---
SHIFT SUMMARY: PATIENT SYSTOLIC SLIGHTLY ELEVATED THIS AM, MAY BENEFIT FROM CHILD-SIZE CUFF - DENIES HX OF HTN. O2 SAT >92% ON 5L NC, AFEBRILE. PATIENT DENIES PAIN, REPORTS SOB. INDEPENDENT IN BED AND TO BSC. SBA TO AID WITH LINES/CORDS. PLEASANT AND COOPERATIVE WITH CARE. CALL LIGHT IN PLACE, BED LOW. WILL CONTINUE TO MONITOR AND REPORT TO ONCOMING RN.
--- NOTE | 2021-12-11 05:38 | NUR ---
SHIFT SUMMARY: PATIENT DENIES CHEST PAIN, REPORTS OCCASIONAL SOB, O2 SATS >92% ON 4-5L NC. AMBULATES TO BSC WITH FWW AND SBA. TELEBOX IS A CONSTANT ANNOYANCE FOR HER AND IS DROPPED FREQUENTLY. PREFERS SLEEPING ON SIDE. MEDICATED PER EMAR. IS CONCERNED ABOUT HER CATS AT HOME. PATIENT WONDERS IF SHE HAS THE SAME FLEA-BORNE ILLNESS ONE OF HER CATS RECENTLY OF AND ANOTHER IS CURRENTLY STRUGGLING WITH. EDUCATED ON CURRENT ILLNESS AND TREATMENT PLAN. BED LOW WITH CALL LIGHT IN REACH. WILL CONTINUE TO MONITOR AND REPORT TO ONCOMING RN.
[2021-12-11 06:32] LABS: Base Excess Venous 1.4 mmol/L; Bicarbonate Venous 24.5 mmol/L (24.0-30.0); PCO2 Venous 51.2 mmHg (38-42); PO2 Venous 35.1 mmHg (38-42); pH Blood Venous 7.33 (7.34-7.37)
--- NOTE | 2021-12-11 11:03 | NUR ---
Echocardiogram completed by Jasmyne Hilliard RDCS under my supervision.
--- NOTE | 2021-12-11 16:50 | NUR ---
END OF SHIFT: PATIENT HAS BEEN MADE MED TELE, BLOOD GLUCOSE IMPROVED THROUGH THE DAY, PATIENT BREATHING IMPROVED, FLUTTER AND INCENTIVE SPIROMETER TEACHING AND PATIENT USING, PATIENT HAS WORKED WITH PT, OT, AND RT. PATIENT HAS BEEN IMPROVING. PATIENT BLOOD PRESSURE BLOOD PERSSURE BELOW 100 ON LAST READING BUT ASYMPTOMATIC AND MAP OF 82 WILL INFORM NIGHT RN. WILL CONTINUE TO MONITOR. POWERLGLIDE FLUSHES WELL. ECHO TODAY PLEASE SEE REPORT WILL CONTINUE TO MONITOR UNTIL SHIFT CHANGE.
--- NOTE | 2021-12-11 21:39 | NUR ---
CARE ASSUMPTION: RECEIVED REPORT FROM ZULEYMA PICKETT RN. REVIEWED ECHO REPORT. PATIENT IN CHAIR WITH 2L NC AND SATS >94%. O2 NEEDS HAVE DECREASED AND OVERALL COLORING HAS IMPROVED FROM PREVIOUS SHIFT. PATIENT STATES ABLE TO AMBULATE BY HERSELF WITH THE FWW AND DAY RN CONFIRMED. PATIENT STATES NOC GYNAECOLOGICAL ONCOLOGIST "WON'T LET ME." SHE IS CONCERNED SHE RECEIVED "NOT LASIX, BUT LIKE IT" (BUMEX) BEFORE BED AND WILL NEED TO USE TOILET FREQUENTLY. OBSERVED PATIENT AMBULATE WITH FWW, NOTED TO NEED HELP MANAGING LINES, BUT OTHERWISE STEADY WITH WALKER. MEDICATED PER EMAR. PATIENT RESTING IN RECLINER. CALL LIGHT IN REACH.
[2021-12-12 05:07] LABS: Hematocrit 34.7 % (33.0-51.0); Hemoglobin 10.4 g/dL (11.5-16.0); Mean Corpuscular HGB 25.2 pg (26.0-34.0); Mean Corpuscular Volume 84 fL (80-100); Mean Platelet Volume 9.2 fL (9.1-12.4); Platelet Count 333 K/mm3 (150-400); RDW Coefficient Variation 16.4 % (11.7-14.2); RDW Standard Deviation 50.3 fL (35.1-46.3); Red Blood Cell Count 4.13 M/mm3 (3.80-5.20)
[2021-12-12 05:16] LABS: International Normalized Ratio 3.53; Prothrombin Time Results 34.1 Sec (9.7-11.5)
[2021-12-12 05:23] LABS: Albumin, Blood 3.1 g/dL (3.4-5.0); Anion Gap 6 mmol/L (6-16); Blood Urea Nitrogen 28 mg/dL (8-24); Bun/Creatinine Ratio 27.7 (12.0-20.0); CO2, Blood 30 mmol/L (21-32); Calcium, Blood 9.7 mg/dL (8.5-10.1); Chloride, Blood 104 mmol/L (98-108); Creatinine, Blood 1.01 mg/dL (0.40-1.00); Glomerular Filtration Rate 56 (60-); Glucose, Blood 130 mg/dL (70-99); Magnesium, Blood 1.8 mg/dL (1.6-2.4); Potassium, Blood 4.2 mmol/L (3.5-5.5); Sodium, Blood 140 mmol/L (136-145)
--- NOTE | 2021-12-12 05:55 | NUR ---
SHIFT SUMMARY: PATIENT MAINTAINED O2 SATS >92% ON 1-2L NC T/O NIGHT. PATIENT EXPRESSES CONCERNS ABOUT DISCHARGING "TOO SOON" AND WOULD LIKE TO STAY ANOTHER DAY EVEN THOUGH SHE FEELS "MUCH BETTER." NO ADVERSE EVENTS THIS SHIFT. DENIES CHEST PAIN OR DISCOMFORT AND MINIMAL SOB (USUALLY WHEN GETTING BACK INTO BED AND ROLLING TO SIDE). PRODUCTIVE COUGH ALSO TIRES PATIENT. PATIENT SLEPT WELL T/O NIGHT. MEDICATED PER EMAR. POWERGLIDE DRAWS AND FLUSHES. BED LOW WITH CALL LIGHT IN REACH. WILL CONTINUE TO MONITOR AND REPORT TO ONCOMING RN.
--- NOTE | 2021-12-12 07:17 | NUR ---
ASSUMED CARE: PT SITTING UPRIGHT IN CHAIR RECIEVING BREATHING TX. 2L O2 IN PLACE. RT AT BEDSIDE. PACED ON TELE. NO ACUTE NEEDS OR CONCERNS.
[2021-12-12] MEDS ORDERED: AZIT250 PO (12:22)
[2021-12-12] MEDS ORDERED: CEFD300 PO (12:22)
[2021-12-12] MEDS ORDERED: IPRAT-ALBUT 0.5-3 ML INH (12:22)
[2021-12-12] MEDS ORDERED: FURO40 PO (12:23)
--- NOTE | 2021-12-12 17:09 | NUR ---
STATED THAT HE HAD PORTABLE OXYGEN IN THE CAR. CHARGE NURSE CALLED [facility] TO HAVE ALL SUPPLIES SENT TO PT'S HOME. INSTRUCTIONS GIVEN REGARDING MEDICATIONS AND FOLLOW UP APPOINTMENTS. NO ACUTE NEEDS OR CONCERNS. IV DC'D WNL. ESCORTED OUT VIA WHEEL CHAIR BY HOSPITAL STAFF.
== END 2021-12-12 17:15 | disposition home health service (06) | DRG 291 ==
LOC: ER 07:34 → ERHOLD 11:57 → PCU 16:40
PROVIDERS: Student in an Organized Health Care Education/Training Program; ADMIT Family Medicine
DX: I11.0 Hypertensive heart disease with heart failure (principal); J96.01 Acute respiratory failure with hypoxia; I50.33 Acute on chronic diastolic (congestive) heart failure; J96.02 Acute respiratory failure with hypercapnia; J18.9 Pneumonia, unspecified organism; E87.2 Acidosis; J44.1 Chronic obstructive pulmonary disease with (acute) exacerbation; E66.2 Morbid (severe) obesity with alveolar hypoventilation; Z68.41 Body mass index [BMI] 40.0-44.9, adult; I48.0 Paroxysmal atrial fibrillation; Z20.822 Contact with and (suspected) exposure to COVID-19; E11.649 Type 2 diabetes mellitus with hypoglycemia without coma; E11.40 Type 2 diabetes mellitus with diabetic neuropathy, unspecified; E78.00 Pure hypercholesterolemia, unspecified; K21.9 Gastro-esophageal reflux disease without esophagitis; Z91.09 Other allergy status, other than to drugs and biological substances; Z79.01 Long term (current) use of anticoagulants; Z79.899 Other long term (current) drug therapy; Z79.84 Long term (current) use of oral hypoglycemic drugs; Z85.118 Personal history of other malignant neoplasm of bronchus and lung; Z92.3 Personal history of irradiation; Z95.0 Presence of cardiac pacemaker; Z87.891 Personal history of nicotine dependence; Z88.1 Allergy status to other antibiotic agents; Z88.8 Allergy status to other drugs, medicaments and biological substances; Z88.6 Allergy status to analgesic agent
CPT/HCPCS: 0241U; 36415; 71045; 80048; 80053; 80069; 82803; 82947; 83036; 83735; 83880; 84145; 84484; 85025; 85027; 85379; 85610; 87040; 87449; 93005; 93010; 93306; 94640; 94644; 94660; 94664; 94761; 94762; 96365; 96375; 97161; 97165; 97530; 99285-25; A9270; J0295; J0456; J0692; J1940; J3475; J7040; J7050

== ENCOUNTER 2021-12-17 07:28 | Inpatient (IN) | payer MEDICARE, OTHER ==
[~2021-12-17] VITALS: Ht 152.4 cm; Wt 105.1 kg
[~2021-12-17 07:28] MED LIST changes: +AZIT250 PO; +B-12500 MC2 PO; +CEFD300 PO; +FAMO20 PO; +FURO40 PO; +IPRAT-ALBUT 0.5-3 ML INH
[2021-12-17 07:45] LABS: Calcium, Ionized (POC) 1.15 mmol/L (1.10-1.46); Chloride (POC) 104 mmol/L (98-108); Creatinine (POC) 0.9 mg/dL (0.6-1.0); Glucose (ISTAT POC) 206 mg/dL (70-99); Hemoglobin (POC) 11.9 g/dL (12.0-16.0); Potassium (POC) 4.4 mmol/L (3.5-5.5); Sodium (POC) 138 mmol/L (135-148); Total CO2 (POC) 27 mmol/L (21-32)
[2021-12-17] MEDS ORDERED: BUME2 PO (08:18)
[2021-12-17] MEDS ORDERED: METO50ER PO (08:18)
[2021-12-17 08:28] LABS: Albumin, Blood 3.1 g/dL (3.4-5.0); Albumin/Globulin Ratio 0.8 (0.8-1.8); Bilirubin, Total 0.5 mg/dL (0.1-1.0); Bun/Creatinine Ratio 22.4 (12.0-20.0); Calcium, Blood 9.4 mg/dL (8.5-10.1); Creatinine, Blood 0.89 mg/dL (0.40-1.00); Globulin, Blood 3.8 g/dL (2.2-4.0); Magnesium, Blood 1.4 mg/dL (1.6-2.4); Potassium, Blood 4.4 mmol/L (3.5-5.5); Total Protein, Blood 6.9 g/dL (6.4-8.2)
[2021-12-17 08:34] LABS: BASOPHILS ABSOLUTE AUTO 0.04 K/mm3 (0.00-0.23); BASOPHILS PERCENT AUTO 0 % (0-2); EOSINOPHILS ABSOLUTE AUTO 0.38 K/mm3 (0.00-0.68); EOSINOPHILS PERCENT AUTO 3 % (0-6); Hematocrit 36.2 % (33.0-51.0); IMMATURE GRAN ABSOLUTE AUTO 0.06 K/mm3 (0.00-0.10); IMMATURE GRAN PERCENT AUTO 1 % (0-1); LYMPHOCYTES ABSOLUTE AUTO 3.33 K/mm3 (0.84-5.20); LYMPHOCYTES PERCENT AUTO 28 % (21-46); MONOCYTES ABSOLUTE AUTO 0.91 K/mm3 (0.16-1.47); MONOCYTES PERCENT AUTO 8 % (4-13); Mean Corpuscular HGB 25.3 pg (26.0-34.0); Mean Corpuscular HGB Conc 30.4 g/dL (31.5-36.5); Mean Corpuscular Volume 83 fL (80-100); Mean Platelet Volume 9.4 fL (9.1-12.4); NEUTROPHILS ABSOLUTE AUTO 7.04 K/mm3 (1.96-9.15); NEUTROPHILS PERCENT AUTO 60 % (41-73); Platelet Count 369 K/mm3 (150-400); RDW Coefficient Variation 16.4 % (11.7-14.2); RDW Standard Deviation 49.1 fL (35.1-46.3); Red Blood Cell Count 4.35 M/mm3 (3.80-5.20); White Blood Cell Count 11.76 K/mm3 (4.00-11.30)
[2021-12-17 08:51] LABS: International Normalized Ratio 1.83; Prothrombin Time Results 18.5 Sec (9.7-11.5)
--- NOTE | 2021-12-17 14:00 | NUR ---
ARRIVAL TO PCU 1 PERSON ASSIST FROM GOURNEY TO BED. NEFTALIES @ BEDSIDE SHE REPORTS THIS IS EASIER FOR HER TO BREATHE. ASSESSMENT CHARTED. DENIES CP, PRESSURE, PALPTATIONS. JOKES ABOUT GOING HOME NOW. HEPARIN DRIP RATE CORRECT IN EMAR.
--- NOTE | 2021-12-17 14:43 | NUR ---
Echocardiogram completed.
--- NOTE | 2021-12-17 18:24 | NUR ---
SHIFT SUMMARY SINCE ARRIVAL TO UNIT, HAS DENIED CP, EVEN w/ AMBULATION TO BATHROOM. HAS DANGLED AT BEDSIDE. HEPARIN GTT RUNNING UNCHANGED. PLEASANT & COOPERATIVE.
--- NOTE | 2021-12-17 20:03 | NUR ---
ASSUMED PT CARE FORM FILOMENA JO ON DAY SHIFT. PT IS A&OX3, SITTING AT SOB. DENIES ANY CHEST PAIN, STATE SHE HAS CHRONIC SOB BUT IS NOT WORSE THEN AT BASELINE. PT ON 2 LPM NC WITH SATS IN MID 90'S. PT USES 2 LPM O2 AT HOME AT NIGHT. DR. CABRERA CALLED TO REQUEST ADDITIONAL TROP DRAW DUE TO NO PEAK NOTED ON PREVIOUS DRAWS. ORDER RECEIVED. TROP LEVEL REDRAWN, RESULTS PENDING. PT PROVIDED WITH IS. STATES SHE HAS IS AT HOME, UNABLE TO OBSERVE USE TO RESPIRATORY THERAPY GIVING CARE AT THIS TIME. CALL LIGHT IN REACH.
[2021-12-18 05:56] LABS: BASOPHILS ABSOLUTE AUTO 0.06 K/mm3 (0.00-0.23); BASOPHILS PERCENT AUTO 1 % (0-2); EOSINOPHILS ABSOLUTE AUTO 0.28 K/mm3 (0.00-0.68); EOSINOPHILS PERCENT AUTO 4 % (0-6); Hematocrit 35.6 % (33.0-51.0); Hemoglobin 10.4 g/dL (11.5-16.0); IMMATURE GRAN ABSOLUTE AUTO 0.04 K/mm3 (0.00-0.10); IMMATURE GRAN PERCENT AUTO 1 % (0-1); LYMPHOCYTES ABSOLUTE AUTO 1.61 K/mm3 (0.84-5.20); LYMPHOCYTES PERCENT AUTO 21 % (21-46); MONOCYTES ABSOLUTE AUTO 0.58 K/mm3 (0.16-1.47); MONOCYTES PERCENT AUTO 8 % (4-13); Mean Corpuscular HGB 25.7 pg (26.0-34.0); Mean Corpuscular HGB Conc 29.2 g/dL (31.5-36.5); Mean Platelet Volume 9.3 fL (9.1-12.4); NEUTROPHILS ABSOLUTE AUTO 5.16 K/mm3 (1.96-9.15); NEUTROPHILS PERCENT AUTO 67 % (41-73); Platelet Count 278 K/mm3 (150-400); RDW Coefficient Variation 16.4 % (11.7-14.2); Red Blood Cell Count 4.05 M/mm3 (3.80-5.20); White Blood Cell Count 7.73 K/mm3 (4.00-11.30)
[2021-12-18 06:01] LABS: Mean Corpuscular Volume 88 fL (80-100)
[2021-12-18 06:25] LABS: Albumin, Blood 2.7 g/dL (3.4-5.0); Albumin/Globulin Ratio 0.7 (0.8-1.8); Bilirubin, Total 0.2 mg/dL (0.1-1.0); Bun/Creatinine Ratio 19.7 (12.0-20.0); Calcium, Blood 8.8 mg/dL (8.5-10.1); Creatinine, Blood 0.86 mg/dL (0.40-1.00); Globulin, Blood 3.7 g/dL (2.2-4.0); Potassium, Blood 4.5 mmol/L (3.5-5.5); Total Protein, Blood 6.4 g/dL (6.4-8.2)
[2021-12-18 09:29] LABS: International Normalized Ratio 2.02; Prothrombin Time Results 20.3 Sec (9.7-11.5)
--- NOTE | 2021-12-18 13:11 | NUR ---
Upon receiving a spiritual care referral, I visit pt. Pt immediately tells me how frustrated she is about having her procedure cancelled and how starving she is (her food was just delivered right before I entered the ). She is not open to conversation because of her focus. I was able to address some of her points of frustration and provide some anxiety containment and allow for a short amount of therapeutic listening. Pt shows a small degree of increased peace. I will continue to remain available to patient and fmaily.
--- NOTE | 2021-12-18 18:01 | NUR ---
PT SUMMARY: PROCEDURE CANCELLED TODAY DUE TO INR BEING HIGH PROVIDER ORDERED PHYTOMENADIONE 2.5MG AND WAS ADMINISTERED FOR THE SHIFT, WILL RECHECK INR IN AM. OTHERWISE, PT HAS BEEN CHEST PAIN FREE, C/O MILD SOB WITH EXERTION ON 2L OF O2 VIA NASAL CANNULA AT BASELINE. DIET RESUMED PT TO BE NPO AGAIN AT MIDNIGHT PER ORDER. CAN MOVE INDEPENDENTLY IN BED, CALLS APPROPRIATELY, CAME IN TO VISIT MOST OF THE SHIFT WAS ABLE TO TALK TO THE PROVIDERS. HEPARIN GTT RUNNING AT 15U/KG/HR. NO OTHER ISSUES REPORTED WILL REPORT TO ONCOMING SHIFT
[2021-12-19 05:17] LABS: International Normalized Ratio 1.49; Prothrombin Time Results 15.2 Sec (9.7-11.5)
--- NOTE | 2021-12-19 05:34 | NUR ---
SHIFT SUMMARY ASSUMED CARE OF PT AT 1900. PT IS A/OX4. HEART SOUNDS IRREGULAR. TELE SHOWS SINUS TACH WITH PAC AND PVC. LUNG SOUNDS AHVE WHEEZES. PT REMAINED ON 2L NC T/O THE NIGHT. PT WAS NONCOMPLIANT WITH TRILOGY. WHEN PT WOULD FALL ASLEEP THIS NURSE WOULD PLACE MASK ON BUT THEM PT WOULD AWAKE TO ASK FOR SNACKS OR SODA. WHEN ASKING PT IF SHE WOULD WEAR THE MASK AT ALL DURING THE NIGHT PT SAID THAT SHE ONLY NEEDED IT IF SHE WAS SLEPING AND SHE WAS NOT SLEEPING YET. THIS HAPPENED MULTIPLE TIMES DURING THE NIGHT AND ULTIMATELY PT DID NOT WEAR HER MASK. SORES ON BOTTOM DRESSED AND DRSSING C/D/I. PT WAS TURNED Q4. GONZALEZ DRAINING CLEAR YELLOW URINE.
--- NOTE | 2021-12-19 11:16 | NUR ---
Ultrasound guided 18 g peripheral IV inserted, right upper arm. Pt tolerated it well.
--- NOTE | 2021-12-19 17:14 | NUR ---
PT SUMMARY: PT POST ANGIO HAD ONE STENT PLACED IN OM, RIGHT RADIAL SITE WITH TR BAND FULLY RECOVERED TRANSPARENT DRESSING IN PLACE AND IS INTACT, SOME BRUISING AROUND THE SITE, NO HEMATOMA NOTED, SPLINT BOARD IN PLACE. PT ACQUIRED SOME BRUISING ON FOREARM POST PROCEDURE, ALSO HAD 2 INFILTRATED IV'S ON BOTH UPPER ARMS WITH EXTESNSIVE BRUISING AND SWELLING FROM THE FLUID WELL, POWERGLIDE PLACED ON LEFT UPPER ARM PT DENIES ANY CHEST PAIN OR ANY KIND OF PAIN SOME TENDERNESS ON THE SITE BUT IS TOLERABLE. VITALS HAS BEEN STABLE. PT WAS ABLE TO WORK WITH PHYSICAL THERAPIST LATE AFTERNOON PT WAS ABLE TO PARTICIPATE WITH NO ISSUES. AT BEDSIDE ALMOST ALL SHIFT, UPDATED WITH PLAN OF CARE POSSIBLE DISCHARGE IN AM IF NO ISSUES. TO FINISH 1 BAG OF SALINE TO FLUSH OUT CONTRAST. NO OTHER ISSUES REPORTED FOR THE SHIFT, ABLE TO MAKE NEEDS KNOWN WILL REPORT TO ONCOMING SHIFT
--- NOTE | 2021-12-20 06:29 | NUR ---
SHIFT SUMMARY ASSUMED CARE OF PT AT 1900. PT IS A/OX4. HEART SOUNDS REGULAR. TELE SHOWED PACED. LUNG SOUNDS DIMINISHED. PT WORE 2L NC T/O THE NIGHT. PT WAS A 1P SBA TO BATHROOM. ANGIO SITE FREE OF SWELLING BUT HAS SLIGHT BRUISING AROUND IT. PT DENIES PAIN. PT BP WAS SOFTED AT AM VITALS BUT PT ASYMPTOMATIC.
[2021-12-20 06:57] LABS: International Normalized Ratio 1.19; Prothrombin Time Results 12.4 Sec (9.7-11.5)
[2021-12-20] MEDS ORDERED: ASPI81CH PO (12:51)
[2021-12-20] MEDS ORDERED: CLOP75 PO (12:52)
[2021-12-20] MEDS ORDERED: ELIQUIS5 M2 PO (12:53)
[2021-12-20] MEDS ORDERED: PRAV20 PO (12:53)
--- NOTE | 2021-12-20 13:41 | NUR ---
DISCHARGE HOME PT A&O X4. VSS. SPO2 > 92% ON RA-2L NC WHICH PT REPORTS HOME BASELINE. R RADIAL ACCESS SITE W/ TRANSPARENT DRESSING & ARM BOARD IN PLACE. SITE W/ BRUISING NOTED, OTHERWISE WNL. DISCHARGE INSTRUCTIONS REVIEWED W/ PT & PT SPOUSE AT BEDSIDE. PIV REMOVED. PT TAKEN OUT BY PCT IN WHEELCHAIR W/ BELONGINGS @ APPROX 1330.
== END 2021-12-20 13:51 | disposition home or self-care (01) | DRG 247 ==
LOC: ER 07:28 → ERHOLD 09:50 → PCU 14:07
PROVIDERS: Family Medicine; Internal Medicine Interventional Cardiology; Student in an Organized Health Care Education/Training Program; ADMIT Family Medicine
PROC: 027034Z Dilation of Coronary Artery, One Artery with Drug-eluting Intraluminal Device, Percutaneous Approach (ICD-10-PCS; principal; 2021-12-19)
PROC: 4A023N7 Measurement of Cardiac Sampling and Pressure, Left Heart, Percutaneous Approach (ICD-10-PCS; 2021-12-19)
PROC: B2111ZZ Fluoroscopy of Multiple Coronary Arteries using Low Osmolar Contrast (ICD-10-PCS; 2021-12-19)
PROC: B2151ZZ Fluoroscopy of Left Heart using Low Osmolar Contrast (ICD-10-PCS; 2021-12-19)
DX: I21.4 Non-ST elevation (NSTEMI) myocardial infarction (principal); I13.0 Hypertensive heart and chronic kidney disease with heart failure and stage 1 through stage 4 chronic kidney disease, or unspecified chronic kidney disease; Z68.41 Body mass index [BMI] 40.0-44.9, adult; I50.32 Chronic diastolic (congestive) heart failure; J96.11 Chronic respiratory failure with hypoxia; J44.9 Chronic obstructive pulmonary disease, unspecified; I25.10 Atherosclerotic heart disease of native coronary artery without angina pectoris; I48.0 Paroxysmal atrial fibrillation; E66.9 Obesity, unspecified; N18.30 Chronic kidney disease, stage 3 unspecified; E11.22 Type 2 diabetes mellitus with diabetic chronic kidney disease; K21.9 Gastro-esophageal reflux disease without esophagitis; E83.42 Hypomagnesemia; R94.31 Abnormal electrocardiogram [ECG] [EKG]; E78.00 Pure hypercholesterolemia, unspecified; G62.9 Polyneuropathy, unspecified; N39.3 Stress incontinence (female) (male); Z95.0 Presence of cardiac pacemaker; Z88.1 Allergy status to other antibiotic agents; Z88.6 Allergy status to analgesic agent; Z91.09 Other allergy status, other than to drugs and biological substances; Z88.8 Allergy status to other drugs, medicaments and biological substances; Z85.118 Personal history of other malignant neoplasm of bronchus and lung; Z92.3 Personal history of irradiation; Z86.14 Personal history of Methicillin resistant Staphylococcus aureus infection; Z99.81 Dependence on supplemental oxygen; Z87.891 Personal history of nicotine dependence; Z79.01 Long term (current) use of anticoagulants; Z79.84 Long term (current) use of oral hypoglycemic drugs; Z79.899 Other long term (current) drug therapy
CPT/HCPCS: 36415; 71045; 80047; 80053; 82565; 82947; 83735; 84484; 85014; 85025; 85347; 85520; 85610; 85730; 86850; 86900; 86901; 93005; 93010; 93308; 93458; 94640; 94664; 94760; 94762; 96365; 96366; 96367; 96368; 96376; 97162; 97530; 99152; 99153; 99285-25; A9270; C1725; C1769; C1874; C1887; C1894; C9600; J1644; J2250; J3246; J3475; J7030; J7040; Q9967

== ENCOUNTER 2022-01-15 03:28 | Inpatient (IN) | payer MEDICARE, OTHER ==
[~2022-01-15] VITALS: Ht 152.4 cm; Wt 102.5 kg
[~2022-01-15 03:28] MED LIST changes: +CLOP75 PO; +ELIQUIS5 M2 PO; +METO50ER PO; +PRAV20 PO
[2022-01-15 04:28] LABS: BASOPHILS ABSOLUTE AUTO 0.05 K/mm3 (0.00-0.23); BASOPHILS PERCENT AUTO 1 % (0-2); EOSINOPHILS ABSOLUTE AUTO 0.22 K/mm3 (0.00-0.68); EOSINOPHILS PERCENT AUTO 3 % (0-6); Hematocrit 29.1 % (33.0-51.0); Hemoglobin 8.7 g/dL (11.5-16.0); IMMATURE GRAN ABSOLUTE AUTO 0.04 K/mm3 (0.00-0.10); IMMATURE GRAN PERCENT AUTO 0 % (0-1); LYMPHOCYTES PERCENT AUTO 26 % (21-46); MONOCYTES ABSOLUTE AUTO 0.63 K/mm3 (0.16-1.47); MONOCYTES PERCENT AUTO 7 % (4-13); Mean Corpuscular HGB 25.1 pg (26.0-34.0); Mean Corpuscular HGB Conc 29.9 g/dL (31.5-36.5); Mean Corpuscular Volume 84 fL (80-100); Mean Platelet Volume 9.1 fL (9.1-12.4); NEUTROPHILS ABSOLUTE AUTO 5.65 K/mm3 (1.96-9.15); NEUTROPHILS PERCENT AUTO 64 % (41-73); Platelet Count 345 K/mm3 (150-400); RDW Coefficient Variation 16.8 % (11.7-14.2); RDW Standard Deviation 51.3 fL (35.1-46.3); Red Blood Cell Count 3.46 M/mm3 (3.80-5.20); White Blood Cell Count 8.89 K/mm3 (4.00-11.30)
[2022-01-15 04:43] LABS: Albumin/Globulin Ratio 0.8 (0.8-1.8); Bilirubin, Total 0.3 mg/dL (0.1-1.0); Bun/Creatinine Ratio 25.6 (12.0-20.0); Calcium, Blood 9.3 mg/dL (8.5-10.1); Creatinine, Blood 0.86 mg/dL (0.40-1.00); Globulin, Blood 3.7 g/dL (2.2-4.0); Potassium, Blood 4.6 mmol/L (3.5-5.5); Total Protein, Blood 6.7 g/dL (6.4-8.2)
[2022-01-16 04:15] LABS: BASOPHILS ABSOLUTE AUTO 0.05 K/mm3 (0.00-0.23); BASOPHILS PERCENT AUTO 1 % (0-2); EOSINOPHILS ABSOLUTE AUTO 0.24 K/mm3 (0.00-0.68); EOSINOPHILS PERCENT AUTO 3 % (0-6); Hematocrit 27.6 % (33.0-51.0); Hemoglobin 8.5 g/dL (11.5-16.0); IMMATURE GRAN ABSOLUTE AUTO 0.02 K/mm3 (0.00-0.10); IMMATURE GRAN PERCENT AUTO 0 % (0-1); LYMPHOCYTES ABSOLUTE AUTO 1.83 K/mm3 (0.84-5.20); LYMPHOCYTES PERCENT AUTO 22 % (21-46); MONOCYTES ABSOLUTE AUTO 0.56 K/mm3 (0.16-1.47); MONOCYTES PERCENT AUTO 7 % (4-13); Mean Corpuscular HGB 25.7 pg (26.0-34.0); Mean Corpuscular HGB Conc 30.8 g/dL (31.5-36.5); Mean Corpuscular Volume 83 fL (80-100); Mean Platelet Volume 9.1 fL (9.1-12.4); NEUTROPHILS ABSOLUTE AUTO 5.53 K/mm3 (1.96-9.15); NEUTROPHILS PERCENT AUTO 67 % (41-73); Platelet Count 333 K/mm3 (150-400); RDW Coefficient Variation 16.9 % (11.7-14.2); RDW Standard Deviation 51.3 fL (35.1-46.3); Red Blood Cell Count 3.31 M/mm3 (3.80-5.20); White Blood Cell Count 8.23 K/mm3 (4.00-11.30)
[2022-01-16 04:37] LABS: Albumin/Globulin Ratio 0.8 (0.8-1.8); Bilirubin, Total 0.5 mg/dL (0.1-1.0); Bun/Creatinine Ratio 24.4 (12.0-20.0); Calcium, Blood 9.3 mg/dL (8.5-10.1); Creatinine, Blood 0.86 mg/dL (0.40-1.00); Globulin, Blood 3.9 g/dL (2.2-4.0); Magnesium, Blood 1.5 mg/dL (1.6-2.4); Potassium, Blood 3.7 mmol/L (3.5-5.5); Total Protein, Blood 6.9 g/dL (6.4-8.2)
[2022-01-16] MEDS ORDERED: FERSU300 PO (13:27)
== END 2022-01-16 15:15 | disposition home or self-care (01) | DRG 291 ==
LOC: ER 03:28 → PCU 09:20
PROVIDERS: Emergency Medicine; ADMIT Internal Medicine
PROC: 5A09357 Assistance with Respiratory Ventilation, Less than 24 Consecutive Hours, Continuous Positive Airway Pressure (ICD-10-PCS; principal; 2022-01-15)
DX: I13.0 Hypertensive heart and chronic kidney disease with heart failure and stage 1 through stage 4 chronic kidney disease, or unspecified chronic kidney disease (principal); I50.33 Acute on chronic diastolic (congestive) heart failure; J96.21 Acute and chronic respiratory failure with hypoxia; J44.9 Chronic obstructive pulmonary disease, unspecified; E11.22 Type 2 diabetes mellitus with diabetic chronic kidney disease; E78.5 Hyperlipidemia, unspecified; E11.40 Type 2 diabetes mellitus with diabetic neuropathy, unspecified; I25.10 Atherosclerotic heart disease of native coronary artery without angina pectoris; I35.0 Nonrheumatic aortic (valve) stenosis; I27.20 Pulmonary hypertension, unspecified; K21.9 Gastro-esophageal reflux disease without esophagitis; D50.9 Iron deficiency anemia, unspecified; D63.1 Anemia in chronic kidney disease; G47.33 Obstructive sleep apnea (adult) (pediatric); N18.2 Chronic kidney disease, stage 2 (mild); I48.0 Paroxysmal atrial fibrillation; I25.2 Old myocardial infarction; Z95.0 Presence of cardiac pacemaker; Z98.890 Other specified postprocedural states; Z87.891 Personal history of nicotine dependence; Z85.118 Personal history of other malignant neoplasm of bronchus and lung; Z92.3 Personal history of irradiation; Z92.21 Personal history of antineoplastic chemotherapy; Z88.1 Allergy status to other antibiotic agents; Z88.6 Allergy status to analgesic agent; Z91.048 Other nonmedicinal substance allergy status; Z79.02 Long term (current) use of antithrombotics/antiplatelets; Z79.82 Long term (current) use of aspirin; Z79.84 Long term (current) use of oral hypoglycemic drugs; Z79.899 Other long term (current) drug therapy
CPT/HCPCS: 36415; 71045; 80053; 82947; 83735; 83880; 84484; 85025; 93005; 93010; 94640; 94660; 94664; 94762; 96374; 99285-25; A9270; J1940; J3475

== ENCOUNTER → 2022-01-23 | Outpatient (CLI) | payer MEDICARE, OTHER ==
[~2022-01-23] MED LIST changes: +FERSU300 PO
[2022-01-25 09:10] LABS: Stool Occult Bld Immuno 1 Negative (NEGATIVE)
== END | disposition home or self-care (01) ==
LOC: LAB 07:46 → LAB SHORT 07:46
PROVIDERS: Internal Medicine
DX: D53.9 Nutritional anemia, unspecified (principal)
CPT/HCPCS: 82274

== ENCOUNTER → 2022-04-02 | Outpatient (CLI) | payer MEDICARE, OTHER ==
[2022-04-02 19:32] LABS: Albumin, Blood 1.8 g/dL (3.4-5.0); Albumin/Globulin Ratio 0.4 (0.8-1.8); Bilirubin, Total 0.4 mg/dL (0.1-1.0); Bun/Creatinine Ratio 30.6 (12.0-20.0); Calcium, Blood 8.2 mg/dL (8.5-10.1); Creatinine, Blood 1.08 mg/dL (0.40-1.00); Globulin, Blood 4.2 g/dL (2.2-4.0); Percent Saturation 17.6 % (15.0-50.0); Potassium, Blood 5.5 mmol/L (3.5-5.5)
== END | disposition home or self-care (01) ==
LOC: LAB 16:40 → LAB SHORT 16:40
PROVIDERS: Internal Medicine
DX: E11.22 Type 2 diabetes mellitus with diabetic chronic kidney disease (principal); I48.91 Unspecified atrial fibrillation; E61.1 Iron deficiency
CPT/HCPCS: 80053; 82728; 82985; 83540; 83550